=== PATIENT | female | born 1975 | race Caucasian/White ===

== ENCOUNTER 2018-02-21 11:35 | Emergency (ER) | payer OTHER, MEDICARE ==
[2018-02-21] MEDS ORDERED: Iopamidol 612 MG/ML 100 ML Bottle IVPUSH ONE (11:46)
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
[2018-02-21 12:13] LABS: CHLORIDE,CL 107 mmol/L (101-111); SODIUM,NA 136 mmol/L (135-145)
[2018-02-21] MEDS ORDERED: HYDROmorphone 0.5 MG/0.5 ML Syringe IVPUSH ONE (13:15)
[2018-02-21] MEDS ORDERED: Acetaminophen/HYDROcodone 325-10 MG Tab PO ONE (15:49)
--- NOTE | 2018-02-24 12:43 | EKG ---
02/21/2018 - ANGELICA BANKS - FINDINGS: This 12-lead EKG shows a normal sinus rhythm with a ventricular rate of 80. Normal axis and intervals. No acute ST-segment or T-wave changes. [facility] /[id number]
== END 2018-02-21 16:48 ==
LOC: DL.ED 11:35
DX: S22.081A Stable burst fracture of T11-T12 vertebra, initial encounter for closed fracture (principal); S22.31XA Fracture of one rib, right side, initial encounter for closed fracture; S22.22XA Fracture of body of sternum, initial encounter for closed fracture; V47.6XXA Car passenger injured in collision with fixed or stationary object in traffic accident, initial encounter
CPT/HCPCS: 36415; 70450; 71260; 72125; 72128; 72131; 74177; 80053; 80305; 81001; 81025; 84484; 85025; 93005; 99291; 99292; A9270; G0480; J1170; Q9967